=== PATIENT | male | born 1975 | race Caucasian/White ===

== ENCOUNTER → 2016-11-04 | Outpatient (CLI) | payer BC ==
--- NOTE | 2016-11-04 17:02 | RADRPT ---
PROCEDURE: Scrotal ultrasound CLINICAL INDICATION: Varicocele. TECHNIQUE: Scrotal ultrasound was performed with sagittal and transverse views. Oropeza scale and co elise imaging was performed. Images were reviewed on high resolution PACS monitors. COMPARISON: None available FINDINGS: The right testicle measures 4.1 x 2.1 x 2.4 cm. The left testicle measures 3.9 x 2.2 x 2.8 cm. There is normal size and echogenicity and morphology bilaterally. Blood flow seen in both testes and epididymi is normal.. The epididymi are normal. There are small bilateral hydroceles. There is a left-sided varicocele which increases in size with Valsalva maneuver. The soft tissues are unremarkable. No mass or cyst or other abnormality is seen. IMPRESSION: 1. Left-sided varicocele. 2. Small bilateral hydroceles. 3. Symmetrically normal testes and epididymi. RPTAT: [facility] Physician Krystin Date Time Electronically viewed and signed by Physician Krystin on 11/04/2016 17:02 /
== END | disposition home or self-care (01) ==
LOC: U/S 15:49
PROVIDERS: ATTEND Urology
DX: I86.1 Scrotal varices (principal)
CPT/HCPCS: 76870

== ENCOUNTER → 2017-02-05 | Outpatient (CLI) | payer BC ==
--- NOTE | 2017-02-05 11:28 | RADRPT ---
PROCEDURE: XR Chest. CLINICAL INDICATION: Pneumonia TECHNIQUE: PA and lateral views of the chest were obtained COMPARISON: 09/15/2014 FINDINGS: No pleural effusion or pneumothorax. No consolidation. Stable cardiomediastinal silhouette. No acute osseous abnormality. IMPRESSION: No acute cardiopulmonary disease. RPTAT: QQ Adriano Knight Physician Date Time Electronically viewed and signed by Adriano Knight Physician on 02/05/2017 11:27 /
[2017-02-05 12:05] LABS: BASOPHILS % 0.4 % (0.0-2.0); EOSINOPHILS # 0.4 10^3/ul (0.0-0.5); EOSINOPHILS % 4.9 % (0.0-7.0); HEMATOCRIT 38.2 % (42.0-52.0); HEMOGLOBIN 13.8 g/dl (14.0-18.0); LYMPHOCYTES # 2.7 10^3/ul (0.8-2.9); LYMPHOCYTES % 35.2 % (15.0-51.0); MEAN CORPUSCULAR HEMOGLOBIN 30.9 pg (29.0-33.0); MEAN CORPUSCULAR HGB CONC 36.1 g/dl (32.0-37.0); MEAN CORPUSCULAR VOLUME 85.7 fl (82.0-101.0); MEAN PLATELET VOLUME 9.8 fl (7.4-10.4); MONOCYTE # 0.4 10^3/ul (0.3-0.9); MONOCYTES % 5.7 % (0.0-11.0); NEUTROPHILS % 53.4 % (39.0-77.0); PLATELET COUNT 200 10^3/UL (140-415); RED BLOOD COUNT 4.46 10^6/ul (4.70-6.10); RED CELL DISTRIBUTION WIDTH 11.8 % (11.5-14.5); WHITE BLOOD COUNT 7.7 10^3/ul (4.8-10.8)
[2017-02-05 12:07] LABS: ADD UMIC NO; UR ASCORBIC ACID NEGATIVE (NEGATIVE); UR BILIRUBIN (Dip) NEGATIVE (NEGATIVE); UR BLOOD (Dip) NEGATIVE (NEGATIVE); UR CLARITY CLEAR (CLEAR); UR COLOR YELLOW (YELLOW); UR GLUCOSE (Dip) NEGATIVE (NEGATIVE); UR KETONES (Dip) NEGATIVE (NEGATIVE); UR LEUKOCYTE ESTERASE (Dip) NEGATIVE Leu/ul (NEGATIVE); UR NITRITE (Dip) NEGATIVE (NEGATIVE); UR SPECIFIC GRAVITY (Dip) 1.018 (1.003-1.030); UR TOTAL PROTEIN (Dip) NEGATIVE (NEGATIVE); UR UROBILINOGEN (Dip) NEGATIVE (NEGATIVE)
[2017-02-05 12:22] LABS: ALBUMIN 4.5 g/dl (3.3-4.9); ALBUMIN/GLOBULIN RATIO 1.25; BILIRUBIN,INDIRECT 0.5 mg/dl (0-1.1); BILIRUBIN,TOTAL 0.5 mg/dl (0.2-1.3); CALCIUM 9.8 mg/dl (8.4-10.2); CREATININE 1.1 mg/dl (0.61-1.24); POTASSIUM 4.4 mmol/L (3.5-5.1); TOTAL PROTEIN 8.1 g/dl (6.1-8.1)
[2017-02-05 12:25] LABS: INR 0.96; PROTIME 12.8 Sec (12.2-14.2)
[2017-02-05 12:26] LABS: PARTIAL THROMBOPLASTIN TIME 29.7 Sec (25.0-35.0)
--- NOTE | 2017-02-05 15:39 | RADRPT ---
Vent Rate: 64 bpm RR Interval: 0 msec AR Interval: 128 msec QRS Duration: 102 msec QT Interval: 392 msec QTC Interval: 404 msec P-R-T Hobbs: 42 - 57 - 54 degrees Normal sinus rhythm Normal ECG Electronically Signed By: Karan Max [id number]
== END | disposition home or self-care (01) ==
LOC: LAB 10:18
PROVIDERS: ATTEND Internal Medicine
DX: D64.9 Anemia, unspecified (principal); D68.9 Coagulation defect, unspecified
CPT/HCPCS: 71020; 80053; 81003; 85025; 85610; 85730; 93005

== ENCOUNTER 2017-02-12 10:00 | Day surgery (SDC) | payer BC ==
--- NOTE | 2017-02-11 10:27 | PREOPHP ---
DATE OF ADMISSION: 02/12/2017 HISTORY OF PRESENT ILLNESS: The patient is a 41-year-old gentleman who is being admitted for left spermatic vein ligation for varicocele treatment by Dr. Jenkins. REVIEW OF SYSTEMS: HEAD: No history of headache, focal weakness or numbness. EYES: No blurry vision or glaucoma. ENT: No sinusitis, tonsillitis, or hoarseness. NECK: No history of thyroid disease or neck pain. CHEST: No cough, wheezing, asthma. The patient does not smoke. HEART: No PND, orthopnea, palpitations. No exertional chest pain. GASTROINTESTINAL: No constipation, diarrhea, change of bowel habits. GENITOURINARY: No dysuria, hematuria or kidney stones. History of varicocele. FAMILY HISTORY: Noncontributory. ALLERGIES: NO KNOWN ALLERGIES. MEDICATIONS: None. PHYSICAL EXAMINATION: GENERAL APPEARANCE: Patient is an average built male, who is very pleasant, in no acute distress. VITAL SIGNS: Blood pressure 130/70, respiratory rate 20 per minute. HEENT: Head normocephalic. No pallor, cyanosis, or icterus. Tongue is moist. NECK: Supple. No thyromegaly, bruits, lymphadenopathy. CHEST: Clinically clear. HEART: S1, S2 heard with no definite gallops. ABDOMEN: Soft, nontender. No hepatosplenomegaly. EXTREMITIES: No edema. Homans sign is negative. NEUROLOGIC: No localizing or lateralizing signs. RECTAL: Exam deferred at patient's request. LABORATORY: WBC count 7.7, hematocrit 38.2, platelet count 200,000. Sodium 143, potassium 4.4, glucose 84. LFTs normal. PT/INR is 0.96, PTT 29.7. Chest x-ray shows normal-sized heart, lung [place] clear. EKG is pending at this time. IMPRESSION: Varicocele for spermatic vein ligation per Dr. Jenkins. The patient's overall medical condition is stable for the proposed surgery. Dictated By: Randal Lange MD /petr/[email or web address] /Document#: [id number]
[~2017-02-12] VITALS: Ht 174 cm; Wt 93.0 kg
[2017-02-12] VITALS (9 sets, daily range): BP systolic 125–144; BP diastolic 78–92; PULSE 66–82; RESP 16–19; Ht 174 cm; Wt 93.0 kg
[~2017-02-12 10:00] MED LIST: CEFAZOLIN 2 GM/50 ML (PMX) 50 ML IVPB SCH
[2017-02-12] MEDS ORDERED: LACTATED RINGER'S 1,000 ML IV SCH (12:00)
--- NOTE | 2017-02-12 12:52 | HPN ---
Date/Time of Note Date/Time of Note DATE: 02/12/17 TIME: 12:51 Interval H&P Admission Note Pt. seen H&P reviewed: No system changes ANASTASIA LOPEZ MD Feb 12, 2017 12:52
[2017-02-12] MEDS ORDERED: LIDOCAINE 100 MG SYRINGE ONE (12:59)
[2017-02-12] MEDS ORDERED: PROPOFOL 40 ML ONE (12:59)
[2017-02-12] MEDS ORDERED: BUPIVACAINE 0.5% 30 ML VIAL INJ ONE (13:00)
[2017-02-12] MEDS ORDERED: MIDAZOLAM 1 MG/ML 2 ML INJ ONE (13:02)
[2017-02-12] MEDS ORDERED: FENTAnyl 50 MCG/ML VIAL ONE (13:02)
[2017-02-12] MEDS ORDERED: CEFAZOLIN 1 GM INJ ONE (13:03)
[2017-02-12] MEDS ORDERED: BUPIVACAINE 0.5% (SDV) 30 ML INJ ONE (13:03)
[2017-02-12] MEDS ORDERED: ACETAMINOPHEN 1000MG/100ML IV 100 ML ONE (13:18)
[2017-02-12] MEDS ORDERED: ONDANSETRON 4 MG INJ ONE (13:23)
[2017-02-12] MEDS ORDERED: FAMOTIDINE 20 MG INJ ONE (13:23)
[2017-02-12] MEDS ORDERED: METOCLOPRAMIDE 10 MG INJ ONE (13:23)
[2017-02-12] MEDS ORDERED: DEXAMETHASONE 4 MG/ML 1 ML INJ ONE (13:23)
[2017-02-12] MEDS ORDERED: LABETALOL HCL 20MG INJ ONE (13:50)
[2017-02-12] MEDS ORDERED: HYDROCODONE/APAP (5/325) TAB PO PRN (14:30)
--- NOTE | 2017-02-12 14:34 | OPR ---
Date/Time of Note Date/Time of Note DATE: 02/12/17 TIME: 14:25 Operative Report Procedure Date: Feb 12, 2017 Preoperative Diagnosis Left varicocele Postoperative Diagnosis Left varicocele Operation Performed Left spermatic vein ligation Surgeon: ANASTASIA LOPEZ MD Anesthesia Type: general Anesthesiologist: STELLA PALENCIA Estimated Blood Loss: minimal Specimens Left spermatic veins Complications: no Pt Condition Post Procedure: stable Indications Left varicocele Operative\Procedure Findings Left varicocele Procedure Description Patient was brought to the operating room positioned in the supine position on the operating room table .timeout was done. The patient was identified by his name birthdate the procedure and the side of the procedure. Patient received 2 g of Ancef IV at the start of the procedure the left side of the patient was elevated on a towel. The left side of the abdomen was shaved. Then the abdomen external genitalia upper thighs were prepped and draped in the usual sterile manner. A transverse incision was made 1 inch proximal medial to the left superior iliac crest and extended for about 6-7 cm toward the midline. The incision was deepened through the subcutaneous tissue. The aponeurosis of the external oblique muscle was then incised and the internal oblique muscle and transversalis fascia were split and retracted. The retroperitoneum was then entered and the spermatic cord was identified and 1/4 inch Jelani drain was passed around it. The spermatic veins were visualized and were dilated in fact 2 of these veins they join together into one vein they they were dissected and from the rest of the spermatic cord. Hemoclips were put on the proximal end as well as of the distal end .I also did ligate the veins was 2-o black silk and I did cut the veins between the tied ends. The wound was then irrigated with normal saline and no bleeding was noted. Then the wound was closed using 2-0 Vicryl for the internal oblique muscle and the fascia of the external oblique muscle. The subcutaneous tissue was approximated with 3-0 Vicryl interrupted sutures. The skin closed using rachel. The patient was given also local anesthesia into the internal oblique muscle external oblique fascia subcutaneous tissue to help in the postop pain. The wound at the end was covered was a piece of Telfa and a piece of Tegaderm and the patient was transferred to the recovery room in a stable and satisfactory condition. ANASTASIA LOPEZ MD Feb 12, 2017 14:34
[2017-02-12] MEDS ORDERED: ONDANSETRON 4 MG INJ IV PRN (15:00)
[2017-02-12] MEDS ORDERED: FENTAnyl 50 MCG/ML VIAL IV PRN ×3 (15:00)
== END 2017-02-12 16:25 | disposition home or self-care (01) ==
LOC: SDS 10:00
PROVIDERS: ATTEND Urology
DX: I86.1 Scrotal varices (principal); E66.9 Obesity, unspecified; Z68.30 Body mass index [BMI] 30.0-30.9, adult
CPT/HCPCS: 55530; J0131; J0690; J1100; J2001; J2250; J2405; J2765; J3010

== ENCOUNTER 2017-09-01 06:30 | Emergency (ER) | END 2017-09-01 10:53 | disposition home or self-care (01) ==